=== PATIENT | female | born 1950 | race Caucasian/White ===

== ENCOUNTER 2022-08-07 07:08 | Day surgery (SDC) | payer OTHER ==
[~2022-08-07] VITALS: Ht 162.6 cm; Wt 55.9 kg
[~2022-08-07 07:08] MED LIST: CEFAZOLIN SOD 1 GM in D5W 50 ML IV ONE
[2022-08-07] MEDS ORDERED: LR 1,000 ML IV.SOLN IV ONE (12:45)
[2022-08-07] MEDS ORDERED: PROPOFOL 200MG/ 20ML VIAL (DIPRIVAN) IV ONE (12:45)
[2022-08-07] MEDS ORDERED: BUPIVACAINE /PF 0.25% 30 ML VIAL INJ ONE (12:45)
[2022-08-07] MEDS ORDERED: DEXAMETHASONE SOD PHOSPHATE 4 MG/ML VIAL IVP ONE (12:45)
[2022-08-07] MEDS ORDERED: ONDANSETRON HCL 4 MG/2 ML VIAL IVP ONE (12:45)
[2022-08-07] MEDS ORDERED: LIDOCAINE 1% 10 MG/ML, 20 ML MDV INJ ONE (12:45)
[2022-08-07] MEDS ORDERED: fentaNYL CITRATE 250 MCG/5 ML AMP IV ONE (12:45)
[2022-08-07] MEDS ORDERED: SEVOFLURANE 15 MIN GAS INH ONE (12:45)
[2022-08-07] MEDS ORDERED: MIDAZOLAM HCL 5 MG/5 ML VIAL IVP ONE (12:45)
[2022-08-07] MEDS ORDERED: NS IRRIG SOLN 1000 ML IR ONE (12:45)
[2022-08-07] MEDS ORDERED: ACETAMINOPHEN I.V. 1000 MG 100 ML IV ONE (13:13)
[2022-08-07] MEDS ORDERED: LR 1,000 ML IV SCH (13:30)
[2022-08-07] MEDS ORDERED: MEPERIDINE HCL/PF 25 MG/ML DISP.SYRIN IVP PRN (13:30)
[2022-08-07] MEDS ORDERED: METOCLOPRAMIDE HCL 10 MG/2 ML VIAL IVP PRN (13:30)
[2022-08-07] MEDS ORDERED: LABETALOL 100 MG/ 20ML VIAL IVP PRN (13:30)
[2022-08-07] MEDS ORDERED: MIDAZOLAM HCL 2 MG/2 ML VIAL (VERSED) IVP PRN (13:30)
[2022-08-07] MEDS ORDERED: HYDROmorphone 1 MG/ML INJ. CARTRIDGE IVP PRN ×2 (13:30)
[2022-08-07] MEDS ORDERED: hydrALAZINE HCL 20 MG/ML VIAL IVP PRN (13:30)
[2022-08-07] MEDS ORDERED: HYDROcodone/ACETAMIN 5-325 MG TAB (NORCO/ VICODIN) PO PRN ×2 (14:00)
[2022-08-07] MEDS ORDERED: D5/0.45 NS 1,000 ML IV SCH (14:00)
[2022-08-07] MEDS ORDERED: hydrALAZINE HCL 20 MG/ML VIAL ONE (14:34)
[2022-08-07 17:41] VITALS: BP_SYST 158
== END 2022-08-07 16:40 | disposition home or self-care (01) ==
LOC: SDS 07:08 → SMU 07:08 → SDS 16:40
PROVIDERS: ATTEND Colon & Rectal Surgery
DX: C50.911 Malignant neoplasm of unspecified site of right female breast (principal); I10 Essential (primary) hypertension; E11.9 Type 2 diabetes mellitus without complications; E03.9 Hypothyroidism, unspecified; J44.9 Chronic obstructive pulmonary disease, unspecified; F32.A Depression, unspecified; F41.9 Anxiety disorder, unspecified; E78.5 Hyperlipidemia, unspecified; F17.210 Nicotine dependence, cigarettes, uncomplicated; Z88.1 Allergy status to other antibiotic agents; Z88.5 Allergy status to narcotic agent; Z88.8 Allergy status to other drugs, medicaments and biological substances; Z79.899 Other long term (current) drug therapy; Z20.822 Contact with and (suspected) exposure to COVID-19
CPT/HCPCS: 36415 ×2; 38792; 19285; 19301; 38525; 38900; 82962; 77065; 76098; 76642; 88305; 88307; 88309; 88329; 88333; 88342; 87426; U0003; A9541; J3490; J0690; J1100; J0360; J2001; J2250; J3465; J2405; J2704; J3010; J7060; J7120; J0131; 78195